=== PATIENT | female | born 1970 | race Caucasian/White ===

== ENCOUNTER 2016-06-04 19:12 | Emergency (ER) | payer OTHER ==
[~2016-06-04] VITALS: Ht 165.1 cm; Wt 109.0 kg
[~2016-06-04 19:12] MED LIST: DICY1TAB26 PO; GLUCTAB PO; GLUCTES27 XX; LISI-360 PO; LOMO PO; PRIL20CA PO
[2016-06-04 19:15] VITALS: BP 116/69; PULSE 96; RESP 16; TEMP 98.7; O2SAT 96
[2016-06-04] MEDS ORDERED: METF500T PO (19:50)
[2016-06-04] MEDS ORDERED: LISI-515 PO (19:51)
--- NOTE | 2016-06-04 19:54 | PD ---
HPI Chief Complaint: Injury Time Seen by Provider: 19:52 Travel History International Travel<30 days: No Contact w/Intl Traveler<30days: No Traveled to known affect area: No History of Present Illness HPI 45-year-old white female presents to emergency Department with complaints of right ankle pain after stepping off a step stool prior to arrival this evening. She states that she heard and felt a crack in her foot and ankle. She states the pain is a burning type pain. She rates the pain a 6-7/10. She denies any other injuries. She states that the pain is exacerbated by walking and some relief with elevation. No neck or back pain. No sensory changes. 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) Cancer: No Cardiovascular Problems: Yes (MUMUR) High Cholesterol: No Chemotherapy: No Chest Pain: No Congestive Heart Failure: No COPD: No Cerebrovascular Accident: No Diabetes: Yes Patient Takes Glucophage: Yes Diminished Hearing: Yes (MILD HEARING LOSS ) Endocrine: No GERD: Yes Genitourinary: No Hiatal Hernia: Yes (NO REPAIR AT THIS TIME) Immune Disorder: No Inguinal Hernia: Yes (LEFT SIDE NO REPAIR) Kidney Stones: No Musculoskeletal: Yes Neurologic: No Psychiatric: No Reproductive: No Respiratory: Yes Immunizations Current: Yes Migraines: No Radiation Therapy: No Renal Failure: No Seizures: No Sleep Apnea: No Thyroid Disease: No Ulcer: No ?: Not : 3 Para: 3 Dilation and Curettage (D&C): Yes Past Surgical History Abdominal Surgery: Yes (RIGHT GROIN HERNIA REPAIR AND UMBILICAL HERNIA REPAIR) AICD: No Arteriovenous Shunt: No Cardiac Surgery: No Cholecystectomy: Yes Ear Surgery: No Endocrine Surgery: No Eye Surgery: No Genitourinary Surgery: No Gynecologic Surgery: Yes (FULL HYSTERECTOMY) Hysterectomy: Yes Insulin Pump: No Joint Replacement: No Oral Surgery: No Pacemaker: No Thoracic Surgery: No Other Surgery: Yes (2 HERNIA REPAIRS) Social History Alcohol Use: No Tobacco Use: No Substance Use: No Allergies-Medications (Allergen,Severity, Reaction): Coded Allergies: Biaxin (Verified Allergy, Unknown, Itching, 06/04/16) Floxcin (Verified Allergy, Unknown, Itching, 06/04/16) Morphine (Verified Allergy, Unknown, Itching, 06/04/16) Reported Meds & Prescriptions Reported Meds & Active Scripts Active Diclofenac Sodium DR (Diclofenac Sodium) 50 Mg Tabdr 50 Mg PO TID Reported Lisinopril 20 Mg Tab 20 Mg PO DAILY Metformin (Metformin HCl) 500 Mg Tab 500 Mg PO BIDPC With meals Review of Systems Except as stated in HPI: all other systems reviewed are Neg Physical Exam Narrative GENERAL: This is a well-nourished, well-developed patient, in no apparent distress. SKIN: Patient has a scaly dermatitis consistent with psoriasis, ecchymoses or lesions. Warm and dry. HEAD: Atraumatic. Normocephalic. EYES: PERRL, EOMI, no discharge or injection. No scleral icterus. EARS: Clear NOSE: Nasal turbinates appear normal. THROAT: Mucosa pink and moist. Airway patent. NECK: Trachea midline. supple, moves head freely. LUNGS: Clear to auscultation. CV: Regular in rhythm. ABDOMEN: Soft nontender. EXT: No clubbing cyanosis. Examination of the right lower extremity reveals pain over the lateral malleolus as well as anterior talar fibular ligament region. There is mild swelling. The skin is intact. No ecchymosis. No pain in the heel, Achilles, medial malleolus, forefoot or toes. The knee, and hip are unremarkable. The left lower extremity as well as upper extremities are without localizing bony tenderness or deformity. Data Data Last Documented VS Vital Signs Date Time Temp Pulse Resp B/P Pulse Ox O2 Delivery O2 Flow Rate FiO2 06/04/16 19:15 98.7 96 16 116/69 96 Room Air Orders Ankle, Complete ([id number]) (06/04/16 19:50) Ice/Cold Pack (06/04/16 19:50) Splint Or Brace Apply/Monitor (06/04/16 19:50) Crutches (06/04/16 19:50) Ibuprofen (Motrin) (06/04/16 20:00) MDM Medical Decision Making Medical Screen Exam Complete: Yes Emergency Medical Condition: Yes Medical Record Reviewed: Yes Interpretation(s) Left ankle: Negative for fracture. Positive degenerative changes. Differential Diagnosis MDM: High Differential diagnoses: Fracture, sprain, strain, dislocation, contusion, neurovascular injury Narrative Course X-ray is negative. Patient's given Motrin 800 mg by mouth. Patient's given Loi wrap and crutches. This is ankle sprain Diagnosis Primary Impression: Right ankle sprain Patient Instructions: General Instructions Additional Instructions: Rest. Elevation. Ice packs for the next 3 days. Loi wrap and crutches. No weight-bearing and then progress to weight-bearing as tolerated. Medications as directed Follow-up with an orthopedist or your doctor in one week. Return to the ER if any problems Med/Other Pt SpecificInfo: Prescription(s) given Scripts Diclofenac Sodium DR 50 Mg Tabdr50 Mg PO TID #30 TAB Prov:Bony Prescott MD 06/04/16 Disposition: 01 DISCHARGE HOME Condition: Stable John Bates Jun 04, 2016 19:54
[2016-06-04] MEDS ORDERED: IBUPROFEN 800 MG TAB PO ONE (20:00)
[2016-06-04] MEDS ORDERED: DICL50TA3 PO (20:20)
--- NOTE | 2016-06-04 20:41 | RADRPT ---
EXAM DATE/TIME: 06/04/2016 20:08 [facility] COMPARISON: No previous studies available for comparison. INDICATIONS : Right ankle pain and swelling MEDICAL HISTORY : Diabetes mellitus type II. SURGICAL HISTORY : None. ENCOUNTER: Initial ACUITY: 1 day PAIN SCORE: 10/10 LOCATION: Right ankle FINDINGS: Three view exam was performed of the right ankle. The bony structures are in normal alignment. No e vidence of fracture, dislocation, or soft tissue swelling. The ankle mortise is intact. No radiopaq ue foreign bodies are seen. Bony mineralization is normal. CONCLUSION: 1. No acute findings. John Arredondo MD on June 04, 2016 at 20:37 Board Certified Radiologist. This report was verified electronically.
== END 2016-06-04 20:41 | disposition home or self-care (01) ==
LOC: NEPB 19:12
DX: S93.401A Sprain of unspecified ligament of right ankle, initial encounter (principal); X50.9XXA Other and unspecified overexertion or strenuous movements or postures, initial encounter
CPT/HCPCS: 73610; 99283; E0113

== ENCOUNTER 2016-12-29 15:44 | Emergency (ER) | payer OTHER ==
[~2016-12-29] VITALS: Ht 165.1 cm; Wt 108.0 kg
[~2016-12-29 15:44] MED LIST changes: +DICL50TA3 PO; -DICY1TAB26 PO; -GLUCTAB PO; -GLUCTES27 XX; -LISI-360 PO; +LISI-515 PO; -LOMO PO; +METF500T PO; -PRIL20CA PO
[2016-12-29 15:48] VITALS: BP 140/92; PULSE 84; RESP 16; TEMP 98.9; O2SAT 98
[2016-12-29] MEDS ORDERED: LEVO25TA4 PO (15:59)
--- NOTE | 2016-12-29 16:22 | PD ---
HPI Chief Complaint: GI Complaint Time Seen by Provider: 16:01 Travel History International Travel<30 days: No Contact w/Intl Traveler<30days: No Traveled to known affect area: No History of Present Illness HPI This patient complains of some abdominal pain. Location is right upper quadrant. Duration 2 weeks. It's come in by bit of nausea but no vomiting or fever. She ate today without undue difficulty. She has no gallbladder. Severity is moderate. No alleviating factors PFSH Past Medical History Arthritis: Yes Asthma: Yes Autoimmune Disease: No Heart Rhythm Problems: Yes Cancer: No Cardiovascular Problems: Yes (MUMUR) High Cholesterol: No Chemotherapy: No Chest Pain: No Congestive Heart Failure: No COPD: No Cerebrovascular Accident: No Diabetes: Yes Patient Takes Glucophage: Yes Diminished Hearing: Yes (MILD HEARING LOSS ) Endocrine: No Gastrointestinal Disorders: No GERD: Yes Genitourinary: No Headaches: No Hiatal Hernia: Yes (NO REPAIR AT THIS TIME) Heparin Induced Thrombocytopen: No Hypertension: No Immune Disorder: No Inguinal Hernia: Yes (LEFT SIDE NO REPAIR) Implanted Vascular Access Dvce: No Kidney Stones: No Musculoskeletal: Yes Neurologic: No Psychiatric: No Reproductive: No Respiratory: Yes Immunizations Current: Yes Migraines: No Radiation Therapy: No Renal Failure: No Seizures: No Sleep Apnea: No Thyroid Disease: No Ulcer: No Tetanus Vaccination: Unknown ?: Not : 3 Para: 3 Dilation and Curettage (D&C): Yes Past Surgical History Abdominal Surgery: Yes (RIGHT GROIN HERNIA REPAIR AND UMBILICAL HERNIA REPAIR) AICD: No Arteriovenous Shunt: No Cardiac Surgery: No Cholecystectomy: Yes Ear Surgery: No Endocrine Surgery: No Eye Surgery: No Genitourinary Surgery: No Gynecologic Surgery: Yes (FULL HYSTERECTOMY) Hysterectomy: Yes Insulin Pump: No Joint Replacement: No Oral Surgery: No Pacemaker: No Thoracic Surgery: No Other Surgery: Yes (2 HERNIA REPAIRS) Social History Alcohol Use: No Tobacco Use: No Substance Use: No Allergies-Medications (Allergen,Severity, Reaction): Coded Allergies: clarithromycin (Unverified Allergy, Unknown, Itching, 12/29/16) morphine (Unverified Allergy, Unknown, Itching, 12/29/16) ofloxacin (Unverified Allergy, Unknown, Itching, 12/29/16) Reported Meds & Prescriptions Reported Meds & Active Scripts Active Reported Levothyroxine (Levothyroxine Sodium) 25 Mcg Tab 25 Mcg PO DAILY Lisinopril 20 Mg Tab 20 Mg PO DAILY Metformin (Metformin HCl) 500 Mg Tab Mg PO BIDPC With meals Review of Systems General / Constitutional: No: Fever Eyes: No: Visual changes HENT: No: Headaches Cardiovascular: No: Chest Pain or Discomfort Respiratory: No: Shortness of Breath Gastrointestinal: Positive: Nausea, Abdominal Pain Genitourinary: No: Dysuria Musculoskeletal: No: Pain Skin: No Rash Neurologic: No: Weakness Psychiatric: No: Depression Endocrine: No: Polydipsia Hematologic/Lymphatic: No: Easy Bruising Physical Exam Narrative GENERAL: Well-nourished, well-developed patient in no apparent distress. SKIN: Focused skin assessment reveals no rash and nodules. Skin is Warm and dry. HEAD: Atraumatic. Normocephalic. EYES: Pupils equal and round. No scleral icterus. No injection or drainage. ENT: No nasal bleeding or discharge. Mucous membranes pink and moist. NECK: Trachea midline. No JVD. CARDIOVASCULAR: Regular rate and rhythm. No murmur appreciated. RESPIRATORY: No accessory muscle use. Clear to auscultation. Breath sounds equal bilaterally. GASTROINTESTINAL: Abdomen soft, mild right upper quadrant tenderness without rebound or guarding, nondistended. Hepatic and splenic margins not palpable. MUSCULOSKELETAL: No obvious deformities. No clubbing. No cyanosis. No edema. NEUROLOGICAL: Awake and alert. No obvious cranial nerve deficits. Motor grossly within normal limits. Normal speech. PSYCHIATRIC: Appropriate mood and affect; insight and judgment normal. Data Data Last Documented VS Vital Signs Date Time Temp Pulse Resp B/P (MAP) Pulse Ox O2 Delivery O2 Flow Rate FiO2 12/29/16 15:48 98.9 84 16 140/92 (108) 98 Orders Orders Complete Blood Count With Diff (12/29/16 16:19) Comprehensive Metabolic Panel (12/29/16 16:19) Lipase (12/29/16 16:19) Iv Access Insert/Monitor (12/29/16 16:19) [facility] Medical Decision Making Medical Screen Exam Complete: Yes Emergency Medical Condition: Yes Medical Record Reviewed: Yes Differential Diagnosis Pancreatitis, ileus, colitis Narrative Course I have reviewed the patient's electronic medical record. I've ordered some lab studies. I don't feel she needs emergent imaging. Anticipate discharge after labs Diagnosis Primary Impression: Right upper quadrant abdominal pain of unknown etiology Additional Instructions: The patient was advised to follow up with their physician and return if they worsen. Med/Other Pt SpecificInfo: Other Disposition: 01 DISCHARGE HOME Condition: Stable Aly Archer MD Dec 29, 2016 16:22
[2016-12-29 16:47] LABS: AUTOMATED NEUTROPHIL # 2.3 TH/MM3 (1.8-7.7); BASOPHIL # 0.1 TH/MM3 (0-0.2); BASOPHIL % 1.1 % (0.0-2.0); EOSINOPHIL # 0.1 TH/MM3 (0-0.4); EOSINOPHIL % 2.8 % (0.0-4.0); HEMO FLAGS DIFF FINAL; LYMPH % 42.7 % (9.0-44.0); LYMPHOCYTE # 2.2 TH/MM3 (1.0-4.8); MEAN CELL VOLUME 83.8 FL (80.0-100.0); MEAN CORPUSCULAR HGB CONC 34.6 % (32.0-36.0); MONO % 7.4 % (0.0-8.0); PLATELET COUNT 181 TH/MM3 (150-450); RED BLOOD COUNT 4.42 MIL/MM3 (4.00-5.30); RED CELL DISTRIBUTION WIDTH 13.1 % (11.6-17.2)
[2016-12-29 17:08] LABS: ALT (GPT) 38 U/L (10-53); ANION GAP 6 MEQ/L (5-15); AST (GOT) 16 U/L (15-37); BICARBONATE 27.1 MEQ/L (21.0-32.0); BLOOD UREA NITROGEN 13 MG/DL (7-18); CHLORIDE 104 MEQ/L (98-107); GLOMERULAR FILTRATION RATE 72 ML/MIN (>89); POTASSIUM 3.8 MEQ/L (3.5-5.1); SODIUM (NA) 137 MEQ/L (136-145)
[2016-12-29 17:11] LABS: ALKALINE PHOSPHATASE 64 U/L (45-117); TOTAL BILIRUBIN ADULT 0.4 MG/DL (0.2-1.0)
--- NOTE | 2016-12-29 17:36 | PD ---
Data Data Last Documented VS Vital Signs Date Time Temp Pulse Resp B/P (MAP) Pulse Ox O2 Delivery O2 Flow Rate FiO2 12/29/16 15:48 98.9 84 16 140/92 (108) 98 Orders Orders Complete Blood Count With Diff (12/29/16 16:19) Comprehensive Metabolic Panel (12/29/16 16:19) Lipase (12/29/16 16:19) Iv Access Insert/Monitor (12/29/16 16:19) Labs Laboratory Tests Test 12/29/16 16:30 White Blood Count 5.0 TH/MM3 Red Blood Count 4.42 MIL/MM3 Hemoglobin 12.8 GM/DL Hematocrit 37.0 % Mean Corpuscular Volume 83.8 FL Mean Corpuscular Hemoglobin 29.0 PG Mean Corpuscular Hemoglobin Concent 34.6 % Red Cell Distribution Width 13.1 % Platelet Count 181 TH/MM3 Mean Platelet Volume 9.5 FL Neutrophils (%) (Auto) 46.0 % Lymphocytes (%) (Auto) 42.7 % Monocytes (%) (Auto) 7.4 % Eosinophils (%) (Auto) 2.8 % Basophils (%) (Auto) 1.1 % Neutrophils # (Auto) 2.3 TH/MM3 Lymphocytes # (Auto) 2.2 TH/MM3 Monocytes # (Auto) 0.4 TH/MM3 Eosinophils # (Auto) 0.1 TH/MM3 Basophils # (Auto) 0.1 TH/MM3 CBC Comment DIFF FINAL Differential Comment Blood Urea Nitrogen 13 MG/DL Creatinine 0.85 MG/DL Random Glucose 186 MG/DL Total Protein 6.7 GM/DL Albumin 3.6 GM/DL Calcium Level 8.7 MG/DL Alkaline Phosphatase 64 U/L Aspartate Amino Transf (AST/SGOT) 16 U/L Alanine Aminotransferase (ALT/SGPT) 38 U/L Total Bilirubin 0.4 MG/DL Sodium Level 137 MEQ/L Potassium Level 3.8 MEQ/L Chloride Level 104 MEQ/L Carbon Dioxide Level 27.1 MEQ/L Anion Gap 6 MEQ/L Estimat Glomerular Filtration Rate 72 ML/MIN Lipase 118 U/L [facility] Supervised Visit with DYANA: Yes Narrative Course 46-year-old woman with abdominal pain. Patient seen by Dr. Archer, signed out to me to follow up results of laboratory testing. LABS: CBC is unremarkable. CMP is unremarkable. Lipase is normal. Patient on abdominal exam. Recommend outpatient follow-up. Diagnosis Primary Impression: Right upper quadrant abdominal pain of unknown etiology Additional Instruction: The patient was advised to follow up with their physician and return if they worsen. Disposition: 01 DISCHARGE HOME Condition: Stable Liam Mcfarland MD Dec 29, 2016 17:36
== END 2016-12-29 17:54 | disposition home or self-care (01) ==
LOC: NEPD 15:44
DX: R10.11 Right upper quadrant pain (principal); E11.9 Type 2 diabetes mellitus without complications; Z79.84 Long term (current) use of oral hypoglycemic drugs
CPT/HCPCS: 80053; 83690; 85025; 99283